=== PATIENT | male | born 1945 | race Caucasian/White ===

== ENCOUNTER → 2019-02-07 | Outpatient (CLI) | payer MEDICARE ==
[2019-02-07 09:12] LABS: Basophils % (A) 1 %; Eosinophils # (A) 0.1 k/uL (0-0.7); Eosinophils % (A) 2 %; HCT 41.3 % (39.0-53.0); Lymphocytes # (A) 1.2 k/uL (1.0-4.8); Lymphocytes % (A) 35 %; MCHC 33.8 g/dL (31.0-37.0); MCV 88.7 fL (80.0-100.0); Mean Platelet Volume 7.9; Monocytes # (A) 0.3 k/uL (0-1.0); Monocytes % (A) 8 %; Neutrophils # (A) 1.8 k/uL (1.3-7.7); Neutrophils % (A) 52 %; Platelet Count 209 k/uL (150-450); RBC 4.66 m/uL (4.30-5.90); RDW 14.4 % (11.5-15.5); WBC 3.5 k/uL (3.8-10.6)
[2019-02-07 16:56] LABS: African American GFR (CKD) 99.2 (60.0-200.0); Albumin/Globulin Ratio 2.35 (1.60-3.17); BUN/Creat Ratio 16.67 Ratio (12.00-20.00); Calcium 9.1 mg/dL (8.7-10.3); Globulin 1.7 g/dL (1.6-3.3); Magnesium 2.1 mg/dL (1.5-2.4); Potassium 4.3 mmol/L (3.5-5.5); T4, Free (Free Thyroxine) 0.8 ng/dL (0.80-1.80); Total Bilirubin 0.5 mg/dL (0.3-1.2); Total Protein 5.7 g/dL (6.2-8.2)
[2019-02-07 17:53] LABS: Gliadin AB IgA, Unit 0.2 U/mL
== END | disposition home or self-care (01) ==
LOC: LABWHC1 08:30
PROVIDERS: ATTEND Internal Medicine
DX: R19.7 Diarrhea, unspecified (principal)
CPT/HCPCS: 36415; 80053; 82150; 83516; 83690; 83735; 84439; 84443; 85025; 87045; 87046; 87324; 87328; 87329

== ENCOUNTER → 2019-02-15 | Outpatient (CLI) | payer MEDICARE ==
--- NOTE | 2019-02-15 08:54 | CT ---
EXAMINATION TYPE: CT abdomen w con DATE OF EXAM: 02/15/2019 COMPARISON: CT abdomen and pelvis October 03, 2010 HISTORY: Pain not further specified presumed per order. No patient note or order are scanned by techn ologist. CT DLP: 474.3 mGycm, Automated Exposure Control for Dose Reduction was Utilized. CONTRAST: CT scan of the abdomen and pelvis is performed with oral and with IV Contrast, patient injected with 100 mL of Isovue 300. FINDINGS: LUNG BASES: Dependent atelectasis in both bases. LIVER/GB: Subcentimeter lesion centrally liver axial image 18 is too small to further characterize wi th some adjacent lesion noted axial image 21 additional scattered subcentimeter hypodense lesions are present seen best on coronal images, they are too small to characterize but presumed benign. PANCREAS: No significant abnormality is seen. SPLEEN: No significant abnormality is seen. ADRENALS: No significant abnormality is seen. KIDNEYS: Symmetric cortical medullary uptake and excretion from both kidneys without hydronephrosis. Some central simple appearing parapelvic cysts are present bilaterally. BOWEL: Oral contrast does not reach colonic level making evaluation of distal bowel suboptimal. There are some scattered diverticula throughout the colon most prominent in the visualized left and sigmoi d colon. No CT evidence for acute diverticulitis. No suspicious small or large bowel dilatation. LYMPH NODES: No greater than 1cm abdominal lymph nodes are appreciated. OSSEOUS STRUCTURES: Mild to moderate Multilevel spurring in the spine. Lqty-[id number]-[id number] disc space na rrowing L2-L3 and L4-L5 levels. Few scattered prominent Schmorl nodes. OTHER: No significant additional abnormality is seen. IMPRESSION: No significant new or acute finding is seen to account for patient's clinical symptoms.
== END | disposition home or self-care (01) ==
LOC: RADCTMAIN 07:28
PROVIDERS: ATTEND Internal Medicine
DX: R63.4 Abnormal weight loss (principal)
CPT/HCPCS: 74160; Q9967

== ENCOUNTER → 2019-03-07 | Outpatient (CLI) | payer MEDICARE ==
[2019-03-07 16:14] LABS: Iron Saturation 29.01 (15.00-50.00)
[2019-03-07 16:23] LABS: Folate, Serum 9.5 ng/mL
[2019-03-07 19:16] LABS: Scallop IgE <0.10 kU/L
[2019-03-07 19:17] LABS: Codfish IgE <0.10 kU/L; Peanut IgE <0.10 kU/L
[2019-03-07 19:18] LABS: Clam IgE <0.10 kU/L; Shrimp IgE <0.10 kU/L; Soybean IgE <0.10 kU/L
[2019-03-07 19:19] LABS: Egg White IgE <0.10 kU/L; Walnut IgE (Food) <0.10 kU/L
== END | disposition home or self-care (01) ==
LOC: LABWHC1 08:22
PROVIDERS: ATTEND Internal Medicine
DX: K90.9 Intestinal malabsorption, unspecified (principal)
CPT/HCPCS: 36415; 82607; 82656; 82705; 82746; 82785; 83540; 83550; 83630; 86003

== ENCOUNTER 2019-04-12 10:51 | Day surgery (SDC) | payer MEDICARE ==
[2019-04-11 09:48] VITALS: BMI 23.3
[~2019-04-12 10:51] MED LIST: LACTATED RINGERS 1,000 ML IV SCH
[2019-04-12] MEDS ORDERED: LACTATED RINGERS 1,000 ML IV ONE (12:51)
[2019-04-12 12:54] LABS: Glucose,Whole Blood 77 mg/dL (75-99)
[2019-04-12] MEDS ORDERED: DEXTROSE 50% SYRINGE 50 ML IVP ONE (12:56)
[2019-04-12 13:02] VITALS: TEMP 98.3
[2019-04-12 13:21] LABS: Glucose,Whole Blood 137 mg/dL (75-99)
[2019-04-12] MEDS ORDERED: GLYCOPYRROLATE 0.2 MG/ML 2 ML VIAL ONE (13:29)
[2019-04-12] MEDS ORDERED: LIDOCAINE 1% INJ 10MG/ML (20 ML MDV) ONE (13:29)
[2019-04-12] MEDS ORDERED: PROPOFOL 10 MG/ML 20 ML VIAL IV ONE (13:29)
--- NOTE | 2019-04-12 13:46 | P.PCN ---
Date of Procedure: 04/12/19 Procedure(s) Performed: BRIEF HISTORY: Patient is a 73-year-old, pleasant, female, scheduled for an upper endoscopy as a part of evaluation of chronic diarrhea and abdominal pain of 3 months duration. He was having 15-20 loose watery bowel movements daily and lost 20 pounds. He had stool studies that may negative. Celiac panel was negative. CT of abdomen and pelvis was unremarkable. Because of the chronic diarrhea is scheduled for an upper endoscopy for duodenal biopsies to rule out celiac disease PROCEDURE PERFORMED: Esophagogastroduodenoscopy with biopsies. PREOPERATIVE DIAGNOSIS: Abdominal pain/chronic diarrhea and progressive weight loss of 20 pounds of 3 months duration. IV sedation per anesthesia. PROCEDURE: After informed consent was obtained, the patient was brought into the endoscopy unit. IV sedation was administered by Anesthesia under continuous monitoring. Initially the Olympus GIF-140 video endoscope was inserted into the mouth. Esophagus intubated without any difficulty. It was gradually advanced into the stomach and duodenum and carefully examined. The bulb and the second part of the duodenum appeared normal. The scope at this time was withdrawn to the stomach, adequately insufflated with air, and upon careful examination, mucosa of the antrum, had mild gastritis and biopsies were done from this area. The body, cardia and the fundus appeared normal. The scope was then withdrawn into the esophagus. The GE junction was located at 39 cm from the incisors. The esophagus appeared normal. There was one superficial erosion consistent with LA grade a reflux esophagitis. Rest of the esophagus appeared normal and the patient tolerated the procedure well IMPRESSION: 1. Normal-appearing duodenum status post multiple biopsies to rule out celiac disease. 2. Mild antral gastritis. 3. LA grade A reflux esophagitis RECOMMENDATIONS: The findings of this examination were discussed with the patient as well as a family. He was advised to follow with the biopsy results.
[2019-04-12 14:11] VITALS: BP 127/78; PULSE 58; RESP 18
== END 2019-04-12 14:25 | disposition home or self-care (01) ==
LOC: ORWHC2ENDO 10:51
PROVIDERS: ATTEND Internal Medicine Gastroenterology
DX: K29.80 Duodenitis without bleeding (principal); K29.50 Unspecified chronic gastritis without bleeding; K21.0 Gastro-esophageal reflux disease with esophagitis; K52.9 Noninfective gastroenteritis and colitis, unspecified; D72.820 Lymphocytosis (symptomatic); E16.2 Hypoglycemia, unspecified; M19.90 Unspecified osteoarthritis, unspecified site; Z86.73 Personal history of transient ischemic attack (TIA), and cerebral infarction without residual deficits; Z79.82 Long term (current) use of aspirin; Z90.49 Acquired absence of other specified parts of digestive tract; Z98.890 Other specified postprocedural states
CPT/HCPCS: 88305; 43239; J2001; J2704

== ENCOUNTER → 2019-05-15 | Outpatient (CLI) | payer MEDICARE ==
[2019-05-15 14:00] VITALS: BMI 25.0
== END | disposition home or self-care (01) ==
LOC: DBWHC3 12:58
PROVIDERS: ATTEND Internal Medicine
DX: K90.9 Intestinal malabsorption, unspecified (principal)
CPT/HCPCS: 97802

== ENCOUNTER → 2020-05-21 | Outpatient (CLI) | payer MEDICARE | END | disposition home or self-care (01) | LOC: LABWHC1 11:26 | PROVIDERS: ATTEND Internal Medicine | DX: Z20.828 Contact with and (suspected) exposure to other viral communicable diseases (principal) | CPT/HCPCS: U0003; C9803 ==

== ENCOUNTER 2022-04-07 07:01 | Day surgery (SDC) | payer MEDICARE ==
[2022-04-05 15:34] VITALS: BMI 25.1
[~2022-04-07 07:01] MED LIST changes: +LIDOCAINE 1% (10MG/ML) FOR IV START INTRADERMA PRN
[2022-04-07 07:40] VITALS: TEMP 96.9
[2022-04-07 07:54] LABS: Glucose,Whole Blood 81 mg/dL (70-110)
[2022-04-07] MEDS ORDERED: PROPOFOL 10 MG/ML 20 ML VIAL IV ONE (08:37)
--- NOTE | 2022-04-07 08:53 | P.PCN ---
Date of Procedure: 04/07/22 Procedure(s) Performed: BRIEF HISTORY: Patient is a 76-year-old pleasant white male scheduled for an elective colonoscopy as a part of evaluation of prior history of colon polyps. He also has family history of colon cancer diagnosed in her mother at age 80. PROCEDURE PERFORMED: Colonoscopy. PREOPERATIVE DIAGNOSIS: History of colon polyps and family history of colon cancer. IV sedation per Anesthesia. PROCEDURE: After informed consent was obtained, the patient, was brought into the endoscopy unit. IV sedation was administered by Anesthesia under continuous monitoring. Digital rectal examination was normal. Initially the Olympus CF-160 flexible video colonoscope was then inserted in the rectum, gradually advanced into the cecum without any difficulty. Careful examination was performed as the scope was gradually being withdrawn. Ileocecal valve and the appendiceal orifice were visualized and appeared normal. Prep was excellent. Mucosa of the cecum, ascending colon, transverse colon, descending colon, sigmoid colon, and rectum appeared normal. Scattered left-sided diverticulosis. Retroflexion was performed in the rectum and no lesions were seen. The patient tolerated the procedure well. IMPRESSION: Normal-appearing colon from rectum to cecum with no evidence of colorectal neop lasia . Scattered left-sided diverticulosis. RECOMMENDATIONS: Findings of this examination were discussed with the patient as well as his family.. Advised to have a repeat screening colonoscopy every 5 years because of the family history of colon cancer.
[2022-04-07 09:16] VITALS: BP 141/79; PULSE 60; RESP 16
== END 2022-04-07 09:30 | disposition home or self-care (01) ==
LOC: ORWHC2ENDO 07:01
PROVIDERS: ATTEND Internal Medicine Gastroenterology
DX: Z12.11 Encounter for screening for malignant neoplasm of colon (principal); K57.30 Diverticulosis of large intestine without perforation or abscess without bleeding; Z86.010 Personal history of colon polyps; Z80.0 Family history of malignant neoplasm of digestive organs; E11.9 Type 2 diabetes mellitus without complications; N40.0 Benign prostatic hyperplasia without lower urinary tract symptoms; Z79.84 Long term (current) use of oral hypoglycemic drugs; Z79.899 Other long term (current) drug therapy
CPT/HCPCS: J2704; G0105; 45378

== ENCOUNTER → 2024-05-01 | Outpatient (CLI) | payer MEDICARE ==
--- NOTE | 2024-05-01 09:42 | US ---
EXAMINATION TYPE: US carotid duplex BILAT DATE OF EXAM: 05/01/2024 COMPARISON: NONE CLINICAL INDICATION: Male, 78 years old with history of [id number] [place], STEN BILATERAL; TECHNIQUE: Grayscale, color Doppler and spectral Doppler evaluation of the bilateral carotid systems and vertebral arteries.Indirect Doppler criteria was utilized. FINDINGS: EXAM MEASUREMENTS: RIGHT: Peak Systolic Velocity (PSV) cm/sec ----- Right CCA: 87.2 ----- Right ICA: 65.5 ----- Right ECA: 64.5 ICA/CCA ratio: 0.8 RIGHT: End Diastole cm/sec ----- Right CCA: 21.5 ----- Right ICA: 21.3 ----- Right ECA: 10.7 LEFT: Peak Systolic Velocity (PSV) cm/sec ----- Left CCA: 84.6 ----- Left ICA: 84.3 ----- Left ECA: 104.0 ICA/CCA ratio: 1.0 LEFT: End Diastole cm/sec ----- Left CCA: 21.0 ----- Left ICA: 28.3 ----- Left ECA: 10.2 VERTEBRALS (direction of flow): Right Vertebral: Antegrade Left Vertebral: Antegrade Rhythm: Normal BRUISE TRIMMER NOTES: Mild homogeneous plaque with no stenosis seen IMPRESSION: No ultrasound evidence for hemodynamically significant stenosis of the bilateral visualized carotid a rterial systems. Criteria for Assigning % of Stenosis / Diameter reduction (Estimation based on the indirect measurements of the internal carotid artery velocities (ICA PSV). 1. Normal (no stenosis)=ICA PSV < 125 cm/s: ratio < 2.0: ICA EDV<40 cm/s. 2. Less than 50% stenosis=ICA PSV < 125 cm/s: ratio < 2.0: ICA EDV<40 cm/s. 3. 50 to 69% stenosis=ICA PSV of 125 to 230 cm/s: ration 2.0 ? 4.0: ICA EDV 40-100 cm/s. 4. Greater than 70% stenosis to near occlusion= ICA PSV > 230 cm/s: ratio > 4.0: ICA EDV > 100 cm/s. 5. Near occlusion= ICA PSV velocities may be low or undetectable: variable ratio and ICA EDV. 6. Total occlusion=unable to detect flow. [facility], , 05/01/2024 9:40 AM
--- NOTE | 2024-05-01 11:58 | CA ---
Exercise Nuclear Stress Test Report Name: Willis Carlos Exam Date: 05/01/2024 10:01 Exam Location: [place] Stress Ht (in): 70 Wt (lb): 175 BSA: 1.97 Ordering Phys: Erin Henderson MD Referring Phys: ERIN HENDERSON Technologist: Jb Domingo Age: 78 Gender: M : 1945 Procedure CPT: Indications: I25.10 I65.23 ICD-10 Codes: Patient History: ASCAD Medications: ASA 81 mg,,,, TAMSULOSIN,,,, VIT D3,,,, COQ10,,,, VITAMIN C,,,, STATIN,,, Meds past 24 hrs: Pretest Chest Pain: STRESS TEST Tomasz Protocol Exercise Duration (min:sec): 10:[address] Depressions (mm): Angina Score: Bray Score: Resting HR (bpm): 64 Peak HR (bpm): 124 Resting BP (mmHg): 119 / 69 Peak BP (mmHg): 202 / 61 MPHR: 144 Target HR: 122 % MPHR: 86 METS: 11.4 Total Dose: Peak Dose: Atropine: Double Product: 27192 BP Response: Stress Termination: TARGET HR REACHED/MAX EXERTION Stress Symptoms: NO SYMPTOMS Stress Summary: The patient's target heart rate was achieved ECG ANALYSIS Resting ECG: Sinus rhythm. Normal conduction. No arrhythmias. Normal repolarization. Stress ECG: No ECG evidence of ischemia with exercise. CONCLUSIONS Exercise capacity very good at >10 METS. No chest discomfort with stress test. Normal ST segment response to stress. Nuclear test results to follow. Dr. Mahin Muro MD (Electronically Signed) Final Date: 01 May 2024 11:57
--- NOTE | 2024-05-01 12:22 | CA ---
Transthoracic Echo Report Name: Willis Carlos Age: 78 Gender: M : 1945 Exam Date: 05/01/2024 11:21 Exam Location: [place] [facility] Ht (in): 70 Wt (lb): 175 Ordering Physician: Erin Be MD Attending/Referring Phys: Willow Machine Operator Kary Bates RDCS Procedure CPT: Indications: I25.10 Cardiac Hx: Technical Quality: Good Contrast 1: Total Dose (mL): Contrast 2: Total Dose (mL): MEASUREMENTS (Male / Female) Normal Values 2D ECHO LV Diastolic Diameter PLAX 4.9 cm 4.2 - 5.9 / 3.9 - 5.3 cm LV Systolic Diameter PLAX 3.3 cm IVS Diastolic Thickness 1.0 cm 0.6 - 1.0 / 0.6 - 0.9 cm LVPW Diastolic Thickness 0.9 cm 0.6 - 1.0 / 0.6 - 0.9 cm LV Relative Wall Thickness 0.4 LVOT Diameter 2.1 cm LV Diastolic Volume MOD BP 124.4 cm??? 67 - 155 / 56 - 104 cm??? LV Systolic Volume MOD BP 50.2 cm??? 22 - 58 / 19 - 49 cm??? LV Ejection Fraction MOD BP 59.6 % >= 55 % LV Cardiac Index MOD BP 2313.0 cm???/min???m??? LV Diastolic Volume MOD 4C 137.5 cm??? LV Systolic Volume MOD 4C 48.6 cm??? LV Ejection Fraction MOD 4C 64.6 % LV Cardiac Index MOD 4C 2769.6 cm???/min???m??? LV Diastolic Length 4C 8.8 cm LV Systolic Length 4C 6.9 cm LV Diastolic Volume MOD 2C 108.8 cm??? LV Systolic Volume MOD 2C 49.4 cm??? LV Ejection Fraction MOD 2C 54.6 % LV Cardiac Index MOD 2C 1852.2 cm???/min???m??? LV Diastolic Length 2C 8.5 cm LV Systolic Length 2C 7.3 cm LA Volume 53.3 cm??? 18 - 58 / 22 - 52 cm??? LA Volume Index 26.8 cm???/m??? 16 - 28 cm???/m??? Ascending Aorta Diameter 4.0 cm DOPPLER AV Peak Velocity 129.1 cm/s AV Peak Gradient 6.7 mmHg AV Mean Velocity 90.1 cm/s AV Mean Gradient 3.6 mmHg AV Velocity Time Integral 29.3 cm LVOT Peak Velocity 101.8 cm/s LVOT Peak Gradient 4.1 mmHg LVOT Velocity Time Integral 22.3 cm LVOT Stroke Volume 80.7 cm??? LVOT Stroke Volume Index 40.9 ml/m??? LVOT Cardiac Index 2515.8 cm???/min???m??? AV Area Cont Eq vti 2.8 cm??? AV Area Cont Eq pk 2.9 cm??? MV Area PHT 3.1 cm??? Mitral E Point Velocity 40.1 cm/s Mitral A Point Velocity 63.6 cm/s Mitral E to A Ratio 0.6 MV Deceleration Time 247.4 ms TR Peak Velocity 218.8 cm/s TR Peak Gradient 19.1 mmHg Right Atrial Pressure 5.0 mmHg Pulmonary Artery Systolic Pressu 24.1 mmHg Right Ventricular Systolic Press 24.1 mmHg PV Peak Velocity 76.5 cm/s PV Peak Gradient 2.3 mmHg FINDINGS Left Ventricle Left ventricular ejection fraction is estimated at 55-60 %. Left ventricular cavity size normal. Left ventricular wall thickness normal. No obvious regional wall motion abnormalities. Right Ventricle Normal right ventricular size and function. Right ventricular systolic pressure within normal limits. Right Atrium Normal right atrial size. Left Atrium Normal left atrial size. Mitral Valve Structurally normal mitral valve. No evidence for mitral valve prolapse. No mitral stenosis. Mild mitral regurgitation. Aortic Valve Trileaflet aortic valve. No aortic stenosis. Mild aortic regurgitation.aortic valve sclerosis. Tricuspid Valve Structurally normal tricuspid valve. No tricuspid stenosis. Mild tricuspid regurgitation. Pulmonic Valve Structurally normal pulmonic valve. No pulmonic stenosis. No pulmonic regurgitation. Pericardium No pericardial effusion. Aorta Normal size aortic root. Mildly dilated ascending aorta. CONCLUSIONS 1. Normal left ventricular size and systolic function 2. Mild mitral, aortic and tricuspid regurgitation 3. Mildly dilated ascending aorta Previewed by: Dr. Mahin Muro MD (Electronically Signed) Final Date: 01 May 2024 12:21
--- NOTE | 2024-05-01 13:41 | NM ---
EXAMINATION TYPE: NM stress cardiolite complete DATE OF EXAM: 05/01/2024 COMPARISON: NONE CLINICAL INDICATION: Male, 78 years old with history of I25.10 I65.23; TECHNIQUE: After the intravenous administration of 10.07 mCi Tc 99m Sestamibi - Rest images obtained 60 minutes post injection. The patient exercised using a KRISTINE protocol and 1 minute prior to peak exercise was injected with 25.8 mCi Tc 99m Sestamibi - Stress images obtained 20 minutes post inject ion. FINDINGS: Targeted heart rate was achieved during performance of the study. Review of stress and rest SPECT shayy ges demonstrates no distinct perfusion abnormality. Gated analysis shows normal wall motion with an estimated left ventricular ejection fraction of 57 %. IMPRESSION: No scintigraphic evidence for reversible ischemia [facility], , 05/01/2024 1:39 PM
== END | disposition home or self-care (01) ==
LOC: RADNMMAIN 08:18
PROVIDERS: ATTEND Internal Medicine
DX: I25.10 Atherosclerotic heart disease of native coronary artery without angina pectoris (principal); I65.23 Occlusion and stenosis of bilateral carotid arteries; I08.1 Rheumatic disorders of both mitral and tricuspid valves
CPT/HCPCS: 78452; 93017; 93306; 93880